=== PATIENT | male | born 1970 | race African-American/Black ===

== ENCOUNTER 2016-06-07 23:40 | Emergency (ER) ==
--- NOTE | 2016-06-08 00:06 | PROVIDER DOCUMENTATION ---
HPI-General Adult <Jessica Blount - Last Filed: 06/08/16 00:13> - General Source: patient - History of Present Illness -Gen Adult Nature of Presenting Problems: Pt. is 45 yom that presents with c/o dizziness. Pt. reports symptoms for two days and states he wasn't doing anything at onset. Pt. reports he was in intermediate and they had him on HTN medications but since he's been out, he hasn't taken any. Location of Pain/Injury: reports: none. denies: head, face, mouth, neck, chest , upper extremity, hand(s), abdomen, back, pelvis, genitalia, lower extremity, feet, upper body, lower body, generalized Pain Radiation: reports: no radiation Quality of Pain: reports: none. denies: aching, burning, cramping, dull, fullness, indigestion, pressure, sharp, stabbing, tearing, throbbing, tightness Severity: denies: mild, moderate, severe Onset/Duration: reports: abrupt, 2 days ago Timing: reports: still present. denies: improving, gone now, resolved prior to arrival, intermittent, constant, changing over time, getting worse Context/Activities at Onset: reports: none. denies: recent emotional stress, recent physical stress, recent trauma history, possible bad food, cold exposure , out of country travel Modifying Factors: improves with: nothing Associated Symptoms: reports: dizziness. denies: anxiety, arm pain, back/neck pain, chest pain, constipation, cough, diaphoresis, diarrhea, EENT symptoms, fatigue, fever/chills, genitourinary problems, headaches, heartburn, joint pain , loss of appetite, malaise, muscle aches, sinus congestion/drainage, nausea, rash, seizure, shortness of breath, sensory/motor loss, pain with inspiration, swelling/mass in abdomen, syncope, vomiting, weakness, trouble walking Similar Symptoms Previously?: Yes Recently seen or treated by another doctor?: No <Naye Ernst - Last Filed: 06/08/16 01:44> - General Chief Complaint: Dizziness Stated Complaint: DIZZY Time Seen by Provider: 06/07/16 23:42 Allergies/Adverse Reactions: Patient Allergies Allergy/AdvReac Type Severity Reaction Status Date / Time No Known Allergies Allergy Verified 06/08/16 01:20 Home Medications: Home Medication List Medication Instructions Recorded Confirmed Last Taken Type Meclizine HCl [Motion Sickness 25 mg PO BID PRN #20 tablet 06/08/16 Unknown Rx Relief] Review of Systems - Adult - REVIEW OF SYSTEMS - ADULT Constitutional: reports: see HPI. denies: chills, fever, fatique Eyes: reports: see HPI. denies: discharge, blurred vision, double vision Ears, Nose, Mouth & Throat: reports: see HPI. denies: ear discharge, ear pain, hearing loss, sinus problem, nose pain, loose teeth, mouth/dental pain, throat pain, throat swelling Cardiovascular: reports: see HPI. denies: chest pain, irregular heart rate, orthopnea, syncope Respiratory: reports: see HPI. denies: cough, dyspnea on exertion, pleurisy, shortness of breath, wheezing Gastrointestinal: reports: see HPI. denies: abdominal pain, constipation, diarrhea, nausea, vomiting Genitourinary: reports: see HPI. denies: dysuria, discharge, frequency, hematuria, hesitency, urgency Musculoskeletal: reports: see HPI. denies: bone pain, back pain, joint pain, muscle aches, neck pain Integumentary: reports: see HPI. denies: hives, itching, rash, skin thickening Neurological: reports: see HPI, dizziness/vertigo. denies: ataxia, headache/ migraines, numbness, seizure, tremors Psychiatric: reports: see HPI. denies: anxiety, depression, emotional problems , insomnia, panic attacks, suicidal thoughts <Naye Ernst - Last Filed: 06/08/16 01:44> Past History - Adult - PAST MEDICAL HISTORY-ADULT Review of Records: reports: Old Records Reviewed, Nursing Assessment Review, Medications Reviewed, Social history reviewed & non-contributory. - IMMUNIZATION STATUS Childhood Immunizations: See Nurse Assessment Flu Vaccine: See Nurse Assessment - FAMILY HISTORY Family History: reviewed, not pertinent - SOCIAL HISTORY Smoking: cigarettes, less than 1 pack/day Provider spent 3-5 mins advising pt. on dangers of tobacco.: Discussed the need to stop smoking. <Naye Ernst - Last Filed: 06/08/16 01:44> Physical Exam-General - PHYSICAL EXAM-ADULT Initial Vital Signs Reviewed: Yes - CONSTITUTIONAL General Appearance: alert, mild distress, thin. negative: obese, anxious, lethargic, slow to respond, obtunded, combative - EYES Eyes: PERRL/EOMI, pink conjunctivae. negative: conjuctival exudate, scleral icterus, subconjunctival hemorrhage - HEAD, EARS, NOSE, MOUTH & THROAT HENMT: normocephalic/atraumatic, moist mucous membranes. negative: angioedema, frontal tenderness, maxillary tenderness - NECK Neck: non-tender, full range of motion, supple, normal inspection. negative: lymphadenopathy, trachial deviation, thyromegaly - RESPIRATORY Respiratory: lungs clear, normal breath sounds. negative: crackles, rales, rhonchi, stridor, wheezing - CARDIOVASCULAR Cardiovascular: normal peripheral pulses, regular rate, rhythm, no edema, no JVD , no murmur. negative: extra beats, friction rub, irregularly irregular - CHEST (BREASTS) Chest/Breast: deferred - GASTROINTESTINAL (ABDOMEN) Abdominal Exam: normal bowel sounds, non tender, soft. negative: distended, guarding, rigid, rebound, tenderness, hernia, mass - GENITOURINARY Male Genitalia: deferred Rectal Exam: deferred Hemoccult Exam: deferred - LYMPHATIC Lymphatic: no adenopathy. negative: axilla node tender, cervical node tenderness - MUSCULOSKELETAL Back Exam: normal inspection, no CVA tenderness, no vertebral tenderness. negative: ecchymosis, swelling, vertebral tenderness Extremity: normal range of motion, non-tender, normal gait, normal inspection. negative: deformity, erythema, inflammation, swelling, tenderness Peripheral Pulses: radial (R): 2+, radial (L): 2+ - SKIN Integumentary: normal color, normal turgor, warm/dry. negative: cyanosis, diaphoresis, ecchymosis, erythema, jaundice, mottled, pallor, petechiae, purpura , rash, swelling, tenderness - NEUROLOGIC Neurologic: grossly normal, no motor/sensory deficits. negative: aphasia, facial droop, focal weakness, motor weakness, sensory deficit - PSYCHIATRIC Psych/Mental Status: normal mood/affect, normal thought content, normal thought process, oriented x 3. negative: anxious, paranoid, tearful <Naye Ernst - Last Filed: 06/08/16 01:44> Progress - EKG 1 Time of EKG reading by physician:: 23:48 EKG Read and Signed by:: José Miguel Don EKG Interpretation (*Must complete 3 of following elements*): Normal Rate: 84 Rhythm: NSR [place]: left (deviation) Comments: Abnormal ECG <Jessica Blount - Last Filed: 06/08/16 00:13> - PLAN OF CARE/RESULTS Progress/Plan/Lab Results: Discussed results and plan of care with patient. Patient agrees with plan and verbalizes understanding. Vital Signs Temp Pulse Resp BP Pulse Ox 06/07/16 23:51 98.0 F 85 20 163/99 100 No Known Allergies Allergy (Verified 06/08/16 01:20) No Home Medications 12/08/15 I&O 06/06/16 06/07/16 06/08/16 06:59 06:59 06:59 Output Total 30 Balance -30 Laboratory 06/08/16 06/07/16 06/07/16 00:05 00:00 00:00 WBC RBC Hgb Hct MCV MCH MCHC RDW Std Deviation Plt Count MPV Immature Gran % (Auto) Neut % (Auto) Lymph % (Auto) Iron % (Auto) Eos % (Auto) Baso % (Auto) Immature Gran # (Auto) Neut # (Auto) Lymph # (Auto) Iron # (Auto) Eos # (Auto) Baso # (Auto) Sodium 139 Potassium 3.3 L Chloride 99 Carbon Dioxide 24 L Anion Gap 16 BUN 12 Creatinine 1.0 Estimated GFR/1.73 m2 > 60 BUN/Creatinine Ratio 12 Glucose 98 Calculated Osmolality 277 Calcium 9.1 Total Bilirubin 0.36 AST 17 ALT 17 Alkaline Phosphatase 70 Creatine Kinase 163 Troponin T < 0.010 Total Protein 7.0 Albumin 4.2 Globulin 2.8 Albumin/Globulin Ratio 1.5 Urine Source CLEAN CATCH Urine Color YELLOW Urine Turbidity CLEAR Urine pH 6.0 Ur Specific [place] 1.035 Urine Protein TRACE A Ur Glucose (Stick) NEGATIVE Ur Ketones (Stick) 10 A Urine Blood NEGATIVE Urine Nitrite NEGATIVE Urine Bilirubin NEGATIVE Urobilinogen Dipstick 3 A Urine Leukocytes NEGATIVE Urine WBC (Auto) <10 Urine RBC (Auto) <10 U Epithel Cells (Auto) <10 Urine Bacteria (Auto) NEGATIVE 06/07/16 00:00 WBC 11.76 H RBC 5.30 Hgb 15.1 Hct 43.9 MCV 82.8 MCH 28.5 MCHC 34.4 RDW Std Deviation 14.4 Plt Count 207 MPV 11.6 H Immature Gran % (Auto) 0.3 Neut % (Auto) 62.6 Lymph % (Auto) 30.8 Iron % (Auto) 4.7 Eos % (Auto) 1.3 Baso % (Auto) 0.3 Immature Gran # (Auto) 0.03 Neut # (Auto) 7.37 H Lymph # (Auto) 3.62 H Iron # (Auto) 0.55 Eos # (Auto) 0.15 Baso # (Auto) 0.04 Sodium Potassium Chloride Carbon Dioxide Anion Gap BUN Creatinine Estimated GFR/1.73 m2 BUN/Creatinine Ratio Glucose Calculated Osmolality Calcium Total Bilirubin AST ALT Alkaline Phosphatase Creatine Kinase Troponin T Total Protein Albumin Globulin Albumin/Globulin Ratio Urine Source Urine Color Urine Turbidity Urine pH Ur Specific [place] Urine Protein Ur Glucose (Stick) Ur Ketones (Stick) Urine Blood Urine Nitrite Urine Bilirubin Urobilinogen Dipstick Urine Leukocytes Urine WBC (Auto) Urine RBC (Auto) U Epithel Cells (Auto) Urine Bacteria (Auto) Orders Category Date Time Status Orthostatic Vital Signs NOW Care 06/08/16 00:42 Active Saline Loc NOW Care 06/07/16 23:49 Active CHEST-2 VIEWS [RAD] Stat Exams 06/08/16 01:02 Taken CBC WITH ELECTRONIC DIFF [HEME] Stat Lab 06/07/16 00:00 Completed CK PROFILE [SP CHEM] Stat Lab 06/07/16 00:00 Completed COMPREHENSIVE METABOLIC PANEL [CHEM] Stat Lab 06/07/16 00:00 Completed TROPONIN T Stat Lab 06/07/16 00:00 Completed URINALYSIS [URINALYSIS] Stat Lab 06/08/16 00:05 Completed 0.9% Sodium Chloride Inj [Ns] 1,000 ml Med 06/08/16 00:34 Discontinued IV 999 mls/hr Meclizine [Antivert] Med 06/08/16 00:48 Discontinued 25 mg PO NOW ONE Potassium Chloride E.r. [Klor-Con] Med 06/08/16 00:43 Discontinued 40 meq PO NOW ONE EKG [EKG] Stat Ther 06/07/16 23:46 Ordered Laboratory Tests 06/07/16 06/07/16 06/07/16 00:00 00:00 00:00 WBC 11.76 H RBC 5.30 Hgb 15.1 Hct 43.9 MCV 82.8 MCH 28.5 MCHC 34.4 RDW Std Deviation 14.4 Plt Count 207 MPV 11.6 H Immature Gran % (Auto) 0.3 Neut % (Auto) 62.6 Lymph % (Auto) 30.8 Iron % (Auto) 4.7 Eos % (Auto) 1.3 Baso % (Auto) 0.3 Immature Gran # (Auto) 0.03 Neut # (Auto) 7.37 H Lymph # (Auto) 3.62 H Iron # (Auto) 0.55 Eos # (Auto) 0.15 Baso # (Auto) 0.04 Sodium 139 Potassium 3.3 L Chloride 99 Carbon Dioxide 24 L Anion Gap 16 BUN 12 Creatinine 1.0 Estimated GFR/1.73 m2 > 60 BUN/Creatinine Ratio 12 Glucose 98 Calculated Osmolality 277 Calcium 9.1 Total Bilirubin 0.36 AST 17 ALT 17 Alkaline Phosphatase 70 Creatine Kinase 163 Troponin T < 0.010 Total Protein 7.0 Albumin 4.2 Globulin 2.8 Albumin/Globulin Ratio 1.5 Urine Source Urine Color Urine Turbidity Urine pH Ur Specific [place] Urine Protein Ur Glucose (Stick) Ur Ketones (Stick) Urine Blood Urine Nitrite Urine Bilirubin Urobilinogen Dipstick Urine Leukocytes Urine WBC (Auto) Urine RBC (Auto) U Epithel Cells (Auto) Urine Bacteria (Auto) 06/08/16 00:05 WBC RBC Hgb Hct MCV MCH MCHC RDW Std Deviation Plt Count MPV Immature Gran % (Auto) Neut % (Auto) Lymph % (Auto) Iron % (Auto) Eos % (Auto) Baso % (Auto) Immature Gran # (Auto) Neut # (Auto) Lymph # (Auto) Iron # (Auto) Eos # (Auto) Baso # (Auto) Sodium Potassium Chloride Carbon Dioxide Anion Gap BUN Creatinine Estimated GFR/1.73 m2 BUN/Creatinine Ratio Glucose Calculated Osmolality Calcium Total Bilirubin AST ALT Alkaline Phosphatase Creatine Kinase Troponin T Total Protein Albumin Globulin Albumin/Globulin Ratio Urine Source CLEAN CATCH Urine Color YELLOW Urine Turbidity CLEAR Urine pH 6.0 Ur Specific [place] 1.035 Urine Protein TRACE A Ur Glucose (Stick) NEGATIVE Ur Ketones (Stick) 10 A Urine Blood NEGATIVE Urine Nitrite NEGATIVE Urine Bilirubin NEGATIVE Urobilinogen Dipstick 3 A Urine Leukocytes NEGATIVE Urine WBC (Auto) <10 Urine RBC (Auto) <10 U Epithel Cells (Auto) <10 Urine Bacteria (Auto) NEGATIVE - XRAY 1 XRAY Study: Chest XRAY Interpretation: NAD ([place]) <Naye Ernst - Last Filed: 06/08/16 01:44> Departure <Jose AlejandroJessica - Last Filed: 06/08/16 00:13> - Departure Time of Disposition Order: 01:39 Certified Medical Emergency: Emergent <Naye Ernst - Last Filed: 06/08/16 01:44> - Departure DIAGNOSIS: Dehydration, Vertigo Disposition: HOME 01 Condition: Stable Additional Instructions: Follow up with primary care physician Take medications as directed Drink plenty of water Return to ED for any concerns or worsening of symptoms ED Follow Up Instructions: You have been treated by a care provider in the Emergency Department. These instructions are being provided to you so you can have an understanding of how to care for yourself upon discharge. Upon discharge from the Emergency Department, you are responsible for making arrangements for follow-up care by a physician of your choice. Take all prescribed medications as directed. Return to the Emergency Department immediately for any new or worsening symptoms. You may call the Physician Referral phone number at [phone] to obtain a list of Physicians who are taking new patients. Prescriptions: Meclizine HCl [Motion Sickness Relief] 25 mg PO BID PRN #20 tablet PRN Reason: Dizziness Attestation - Physician/ ANASTACIA Attestation Patient care was provided by Advanced Practice Provider:: Yes Advanced Practice Provider:: Naye Ernst Advanced Practice Provider documentation review:: The Mid-level provider documentation, treatment plan and medical decision making was reviewed by the physician who agrees with all treatment and medical decision making by the P. <Naye Ernst - Last Filed: 06/08/16 01:44> Physician Attestation
[2016-06-08 00:17] LABS: MANUAL DIFF NEEDED? NO
[2016-06-08 00:18] LABS: URINE MICRO REVIEW NEEDED? NO; URINE SOURCE CLEAN CATCH
[2016-06-08 00:26] LABS: BASO% 0.3 % (0.0-0.8); EOS# 0.15 X1000 (0.0-0.7); EOS% 1.3 % (0.0-10.0); HEMATOCRIT 43.9 % (42.0-52.0); HEMOGLOBIN 15.1 g/dL (14.0-18.0); IMM GRAN# 0.03 X1000 (0.0-0.04); IMM GRAN% 0.3 % (0.0-0.5); LYMPH# 3.62 X1000 (1.2-3.4); LYMPH% 30.8 % (20.5-51.1); MCH 28.5 PG (27-31); MCHC 34.4 g/dL (33-37); MCV 82.8 FL (81-99); MONO# 0.55 X1000 (0.11-0.59); MONO% 4.7 % (1.7-9.3); MPV 11.6 FL (7.4-10.4); NEUT% 62.6 % (42.2-75.2); PLT 207 X1000 (130-400)
[2016-06-08] MEDS ORDERED: NS 1,000 ML IV ONE (00:34)
[2016-06-08 00:42] LABS: AGAP 16; ALBUMIN 4.2 g/dL (3.5-5.0); ALKALINE PHOSPHATASE 70 U/L (32-122); BUN 12 mg/dL (8-22); CALCIUM 9.1 mg/dL (8.8-10.2); CHLORIDE 99 mmol/L (98-107); CK PROFILE 163 U/L (24-204); COSMO 277; GOT 17 U/L (10-34); GPT 17 U/L (10-44); POTASSIUM 3.3 mmol/L (3.5-5.1); SODIUM 139 mmol/L (136-145); TCO2 24 mmol/L (25-35); TOTAL BILIRUBIN 0.36 mg/dL (0.20-1.00)
[2016-06-08] MEDS ORDERED: KLOR-CON PO ONE (00:43)
[2016-06-08] MEDS ORDERED: ANTIVERT PO ONE (00:48)
[2016-06-08 00:59] LABS: BILIRUBIN URINE NEGATIVE (NEGATIVE); BLOOD URINE NEGATIVE (NEGATIVE); COLOR YELLOW; GLUCOSE URINE NEGATIVE (NEGATIVE); LEUKOCYTES URINE NEGATIVE (NEGATIVE); NITRITE URINE NEGATIVE (NEGATIVE); PROTEIN URINE TRACE mg/dL (NEGATIVE); SP GRAVITY URINE 1.035; TURBIDITY URINE CLEAR (CLEAR); UR EPITHELIAL CELLS <10 /HPF (<10); URINE BACTERIA NEGATIVE /HPF; URINE RBC <10 /HPF (<10); URINE WBC <10 /HPF (<10); UROBILINOGEN URINE 3 mg/dL (NORMAL)
[2016-06-08] MEDS ORDERED: ANTIVERT ONE (01:43)
[2016-06-08 02:46] VITALS: BP 155/92
--- NOTE | 2016-06-08 07:20 | Diag Imaging Result Document ---
PROCEDURE NAME: CHEST-2 VIEWS - 06/08/2016 FRONTAL AND LATERAL CHEST, TWO VIEWS: FINDINGS: The lungs are well expanded. The heart is not enlarged. The vessels are not distended. No pneumonia. No pleural effusions. Mild scoliosis. No free air beneath the diaphragm. IMPRESSION: No acute abnormality.
--- NOTE | 2016-06-08 09:06 | EKG Report ---
Test Performed on : 06/07/2016 11:48:47 PM Test Reason : dizzy Blood Pressure : / mmHG Vent. Rate : 084 BPM Atrial Rate : 084 BPM P-R Int : 144 ms QRS Dur : 098 ms QT Int : 392 ms P-R-T Axes : 065 -38 019 degrees QTc Int : 463 ms Normal sinus rhythm. Right atrial enlargement Left axis deviation Voltage criteria for left ventricular hypertrophy Abnormal ECG No previous ECGs available Unconfirmed Result
== END 2016-06-08 02:46 | disposition home or self-care (01) ==
LOC: ED 23:40
DX: R42 Dizziness and giddiness (principal); E86.0 Dehydration; F17.210 Nicotine dependence, cigarettes, uncomplicated; Z71.6 Tobacco abuse counseling
CPT/HCPCS: 71020; 80053; 81001; 82550; 82948; 84484; 85025; 93005; J7030